=== PATIENT | male | born 1995 | race African-American/Black ===

== ENCOUNTER 2016-09-17 14:03 | Emergency (ER) | payer MEDICAID ==
[~2016-09-17] VITALS: Ht 190.5 cm; Wt 82.0 kg
[2016-09-17 14:06] VITALS: BP 150/86
== END 2016-09-17 16:58 | disposition home or self-care (01) ==
LOC: ER 14:03
DX: S00.03XA Contusion of scalp, initial encounter (principal); S90.31XA Contusion of right foot, initial encounter; S13.4XXA Sprain of ligaments of cervical spine, initial encounter; V43.62XA Car passenger injured in collision with other type car in traffic accident, initial encounter; Y92.488 Other paved roadways as the place of occurrence of the external cause; F12.10 Cannabis abuse, uncomplicated
CPT/HCPCS: 70450; 72125; 73630; 99284

== ENCOUNTER 2018-11-15 17:44 | Emergency (ER) | payer MEDICAID ==
[~2018-11-15] VITALS: Ht 190.5 cm; Wt 79.0 kg
[2018-11-15] MEDS ORDERED: KETOROLAC 60MG/2ML VIAL IM STA (20:51)
[2018-11-15] MEDS ORDERED: CEFTRIAXONE SODIUM 250 MG/VIAL IM ONE (21:00)
[2018-11-15] MEDS ORDERED: LIDOCAINE HCL/PF 1% 10 MG/ML 5ML VIAL IJ ONE (21:00)
[2018-11-15] MEDS ORDERED: AZITHROMYCIN 500 MG TABLET PO ONE (21:00)
[2018-11-15 22:39] LABS: CLARITY URINE CLEAR (CLEAR); COLOR URINE YELLOW (YELLOW); KETONES URINE TRACE (NEGATIVE); LEUKOCYTE ESTERASE URINE TRACE (NEGATIVE); NITRITE URINE NEGATIVE (NEGATIVE); OCCULT BLOOD URINE NEGATIVE (NEGATIVE); PROTEIN URINE TRACE (NEGATIVE); SPECIFIC GRAVITY URINE 1.027 (1.005-1.030)
[2018-11-15 23:11] VITALS: BP 145/90
== END 2018-11-15 23:12 | disposition home or self-care (01) ==
LOC: ER 17:44
DX: S69.81XA Other specified injuries of right wrist, hand and finger(s), initial encounter (principal); W17.89XA Other fall from one level to another, initial encounter; Y93.89 Activity, other specified; Y92.89 Other specified places as the place of occurrence of the external cause; Y99.8 Other external cause status; F12.10 Cannabis abuse, uncomplicated; N34.2 Other urethritis; J45.909 Unspecified asthma, uncomplicated
CPT/HCPCS: 73130; 81003; 96372; 99284; J0696; J1885; J3490

== ENCOUNTER 2019-03-01 15:30 | Emergency (ER) | payer MEDICAID ==
[~2019-03-01] VITALS: Ht 188 cm; Wt 75.0 kg
[2019-03-01 15:46] VITALS: BP 102/66
== END 2019-03-01 17:44 | disposition left against medical advice (07) ==
LOC: ER 15:30
DX: Z53.21 Procedure and treatment not carried out due to patient leaving prior to being seen by health care provider (principal)

== ENCOUNTER 2019-03-01 18:01 | Emergency (ER) | payer MEDICAID, OTHER ==
[~2019-03-01] VITALS: Ht 188 cm; Wt 75.0 kg
[2019-03-01 18:18] VITALS: BP 103/57
== END 2019-03-01 21:09 | disposition left against medical advice (07) ==
LOC: ER 18:01
DX: Z53.21 Procedure and treatment not carried out due to patient leaving prior to being seen by health care provider (principal)

== ENCOUNTER 2022-02-25 21:47 | Emergency (ER) | payer MEDICAID, OTHER ==
[~2022-02-25] VITALS: Ht 190.5 cm; Wt 90.6 kg
[2022-02-25 23:42] VITALS: BP 109/76
[2022-02-26 06:48] LABS: CLARITY URINE CLEAR (CLEAR); COLOR URINE DARK YELLOW (YELLOW); KETONES URINE 1+ (NEGATIVE); LEUKOCYTE ESTERASE URINE TRACE (NEGATIVE); NITRITE URINE NEGATIVE (NEGATIVE); OCCULT BLOOD URINE NEGATIVE (NEGATIVE); PROTEIN URINE 1+ (NEGATIVE); SPECIFIC GRAVITY URINE 1.032 (1.005-1.030)
[2022-02-26] MEDS ORDERED: AZITHROMYCIN 500 MG TABLET PO ONE (08:00)
[2022-02-26] MEDS ORDERED: CEFTRIAXONE SODIUM 250 MG/VIAL IM ONE (08:00)
[2022-02-26] MEDS ORDERED: LIDOCAINE HCL/PF 1% 10 MG/ML 5ML VIAL INFIL ONE (08:15)
[2022-02-28 04:07] LABS: NEISSERIA GONORRHOEAE NAA Negative (Negative)
== END 2022-02-26 08:27 | disposition home or self-care (01) ==
LOC: ER 21:47
DX: N48.89 Other specified disorders of penis (principal); Z20.2 Contact with and (suspected) exposure to infections with a predominantly sexual mode of transmission; F12.10 Cannabis abuse, uncomplicated
CPT/HCPCS: 72170; 74176; 81003; 87491; 87591; 96372; 99285; J0696; J3490